=== PATIENT | female | born 1985 | race Caucasian/White ===

== ENCOUNTER 2025-04-13 18:18 | Emergency (ER) | payer OTHER ==
[~2025-04-13] VITALS: Ht 165.1 cm; Wt 59.8 kg
[2025-04-13 18:25] VITALS: BP 131/71; TEMP 97.6
[2025-04-13 20:07] LABS: MEAN PLATELET VOLUME 7.5 FL (7.4-10.4); RED CELL DISTRIBUTION WIDTH 13.4 % (11.5-14.5)
[2025-04-13 20:13] LABS: LEUKOCYTE ESTERASE ,URINE NEGATIVE (Neg); NITRITES, URINE NEGATIVE (Neg); OCCULT BLOOD,URINE NEGATIVE (Neg)
[2025-04-13 20:18] LABS: UA COLLECTION TYPE CLN CATCH MIDSTREAM
[2025-04-13 20:22] LABS: CREATININE 1.08 MG/DL (0.40-0.90); TOTAL CARBON DIOXIDE 29.4 MMOL/L (24-32); eCRCL 62 ML/MIN; eGFR 56 ML/MIN
--- NOTE | 2025-04-13 22:11 | Physician Documentation ---
History of Present Illness ~ Chief Complaint: Hyperglycemia Stated Complaint: "BLOOD SUGAR ISSUES" Time Seen by MD: 21:23 Mode of Arrival: Ambulatory HPI 39-year-old female with a history of hypertension and prediabetes who presents with symptoms including nausea, vomiting, general malaise, and abdominal pain. She tells me that she has high blood pressure and does take blood pressure medicine. She also reports a history of prediabetes and has been on Mounjaro, lost about 50 lb, and was doing very well. She stopped taking it a couple of weeks ago. She is not on any other diabetes medications. Since she stopped taking it, she reports she feels like her blood sugar is all over the place, including low. She bought a blood glucose monitor, and sometimes her blood sugar gets as low as the 50s. She reports having intermittent nausea, fatigue, sometimes vomits. She otherwise is trying to live a healthy lifestyle including exercising regularly and eating healthy. She does fast about 12 hours during the night. She felt poorly today and checked her blood sugar and it was 59. She called a friend who is a nurse who told her to drink juice and eat a sandwich. She then started to feel nauseous and vomited, and so she came to the ER. She does report some pain in her upper abdomen, points to the epigastric region. She denies any history of acid reflux, does not take any antacids or other stomach medications. She denies any other symptoms including no fevers or chills. She has had her gallbladder removed and has had a hysterectomy so she can not be . Medication Reconciliation Allergies: Coded Allergies: Sulfa (Sulfonamide Antibiotics) (Verified Allergy, Unknown, 04/13/25) amoxicillin (Verified Allergy, Unknown, 04/13/25) gold Au 198 (Verified Allergy, Unknown, 04/13/25) neomycin (Verified Allergy, Unknown, 04/13/25) Review of Systems Constitutional: Denies: fever Gastrointestinal: Reports: abdominal pain, nausea, vomiting Physical Exam Vital Signs: Temperature: 97.6, Source: Temporal, Heart Rate: 70, Respiratory Rate: 16, BP: 131/71, Pulse Oximetry: 99, Weight: 59.750 Physical Exam General: This is a pleasant and overall healthy-appearing young woman, partner at bedside HEENT: Atraumatic, oropharynx is moist Heart: Regular rate and rhythm, normal-appearing peripheral perfusion Lungs: Clear breath sounds bilateral, normal work of breathing, normal oxygen saturation on room air Abdomen: Soft, nondistended, mild focal tenderness in the epigastric region, otherwise no rebound or guarding Extremities: Warm and well-perfused Neuro: Alert and oriented, no focal deficits Psychiatric: Calm and cooperative with exam Progress Results/Orders Results/Orders Completed Orders - CARMEL POWER MD CMP (04/13/25 19:12) Cbc/Diff (04/13/25 19:12) Urinalysis, Cult If Indicated (04/13/25 19:12) Lipase (04/13/25 19:55) Vital Signs 04/13/25 04/13/25 04/13/25 18:25 21:17 23:17 Temp 97.6 Pulse 70 78 Resp 14 16 15 B/P (MAP) 131/71 Pulse Ox 99 98 Laboratory Tests Test 04/13/25 19:44 04/13/25 19:55 Urine Specimen Description Cln catch midstream Urine Color Yellow Urine Clarity Clear Urine pH 6.0 Urine Specific Ryan 1.020 Urine Protein Negative Urine Glucose (UA) Negative Urine Ketones Negative Urine Occult Blood Negative Urine Nitrite Negative Urine Bilirubin Negative Urine Urobilinogen 0.2 Urine Leukocyte Esterase Negative Urine Culture Indicated Not ind Volume Urine Centrifuged 10 ml Urine Comment White Blood Count 9.9 Red Blood Count 5.01 Hemoglobin 15.0 Hematocrit 43.2 Mean Corpuscular Volume 86.1 Mean Corpuscular Hemoglobin 29.9 Mean Corpuscular Hemoglobin Concent 34.7 Red Cell Distribution Width 13.4 Platelet Count 402 Mean Platelet Volume 7.5 Neutrophils (%) (Auto) 64.2 Lymphocytes (%) (Auto) 27.4 Monocytes (%) (Auto) 6.6 Eosinophils (%) (Auto) 1.3 Basophils (%) (Auto) 0.5 Neutrophils # (Auto) 6.4 Lymphocytes # (Auto) 2.7 Monocytes # (Auto) 0.7 Eosinophils # (Auto) 0.1 Basophils # (Auto) 0.0 CBC Comment Sodium Level 137 Potassium Level 4.6 Chloride Level 101 Carbon Dioxide Level 29.4 Anion Gap 7 L Blood Urea Nitrogen 21 H Creatinine 1.08 H Estimated GFR/1.73 m2 56 BUN/Creatinine Ratio 19.4 Glucose Level 110 H Calcium Level 9.6 Total Bilirubin 0.3 Aspartate Amino Transf (AST/SGOT) 13 Alanine Aminotransferase (ALT/SGPT) 25 Alkaline Phosphatase 91 Total Protein 8.1 Albumin 4.4 Globulin 3.7 Albumin/Globulin Ratio 1.2 Lipase 61 Chemistry Comments Medical Decision Making Differential Dx:Considerations: Include: Dehydration, Diabetes, Electrolyte abnormality, Hyperglycemia, Hypoglycemia, Pancreatitis, UTI Assessment The patient presents with multiple symptoms over several weeks including episodes of dizziness, nausea and vomiting and epigastric pain. Here in the ED, she is overall well-appearing, has normal vital signs. Blood glucose is not dangerously low or elevated. Her lab work is unremarkable, no dangerous findings. Overall, the exact cause of her symptoms is unclear. Stress could be contributing although there was no way to prove this. I suspect some element of gastritis, and I offered to treat her with antacids and Zofran, but she declined these medications. I also offered to perform a head CT to evaluate for an intracranial process causing her headaches and dizziness episodes, but she also declined this. I had a long discussion with the patient and her r egarding all of her symptoms. The exact cause is unclear at this time. Her symptoms did not seem to correlate with her reported blood sugar levels. She is advised to stop fasting, to eat frequent small meals, and to follow up with the primary care doctor to discuss further workup or testing as above. She will return if she has worsening symptoms. Departure Time of Disposition: 22:54 Disposition: 01 HOME / SELF CARE / HOMELESS Impression: Primary Impression: Dizziness Additional Impression: Headache Condition: Stable Referrals: NO PRIMARY CARE PROVIDER (PCP) Education Educated: Patient, Family Educated regarding: need for follow up Signature Scribe Signature: thomas Attestation: CARMEL Singletary MD Apr 13, 2025 22:11
[2025-04-13 23:17] VITALS: PULSE 78; RESP 15; O2SAT 98
== END 2025-04-13 23:26 | disposition home or self-care (01) ==
LOC: ER 18:20
DX: R42 Dizziness and giddiness (principal); R51.9 Headache, unspecified; R11.2 Nausea with vomiting, unspecified; I10 Essential (primary) hypertension; Z88.2 Allergy status to sulfonamides; Z90.49 Acquired absence of other specified parts of digestive tract; Z88.1 Allergy status to other antibiotic agents
CPT/HCPCS: 36415; 80053; 81003; 83690; 85025; 99283